=== PATIENT | male | born 2000 | race Caucasian/White ===

== ENCOUNTER 2023-12-09 07:10 | Emergency (ER) | payer OTHER, BC, SELFPAY ==
[2023-12-09 07:11] VITALS: BP 157/81
--- NOTE | 2023-12-09 08:50 | ED.GENMED ---
History of Present Illness
General
Chief Complaint: Skin Surface Trauma
Source: patient
Exam Limitations: none
Time Seen by Provider: 12/09/23 08:06
Nursing documentation reviewed up to this point in time: agreed with
Travel History
Have you had any contact with someone who has COVID-19?: No
Do you have any symptoms of coronavirus? Fever > 100 degrees, chills, cough, shortness of breath, sore throat, loss of taste or smell, muscle aches, or headache?: No
History of Present Illness
History of Present Illness:
23-year-old male with past medical history of asthma presenting to the emergency department today with concerns of a laceration between the index and middle finger in the webspace from opening a can while at work just prior to arrival. Denies any
additional symptoms no numbness or weakness
Review of Systems
Review of Systems
Allergies reviewed?: Yes
All Other Systems: ROS reviewed and negative except as documented in HPI and ROS
Phy Exam
Physical Exam
Physical Exam:
GENERAL: Alert , in no apparent distress
EYE: pupils equal and reactive
NECK: Supple, no significant adenopathy.
ENT: o/p clr, mmm.
CARDIAC: Regular rate and rhythm .
LUNGS: Clear breath sounds bilaterally, no acute respiratory distress, no wheezes/rales/rhonchi
ABDOMEN: Soft, without focal tenderness, no r/g, no cvat
NEUROLOGICAL: Alert and oriented, no focal neuro deficits
SKIN: Laceration between the index and middle finger 3.5 cm in length subcutaneous in depth no tendon involvement no foreign body seen explored warm and dry, skin intact.
MUSCULOSKELETAL: No edema, well perfused.
PSYCH: Normal and appropriate interaction.
Course
Vital Signs
Initial and Last Documented VS:
Initial Vital Signs
Temp Pulse Resp BP Pulse Ox
98.2 F 85 16 157/81 98
12/09/23 07:11 12/09/23 07:11 12/09/23 07:11 12/09/23 07:11 12/09/23 07:11
Last Documented Vital Signs
Temp Pulse Resp BP Pulse Ox
98.2 F 85 16 157/81 98
12/09/23 07:11 12/09/23 07:11 12/09/23 07:11 12/09/23 07:11 12/09/23 07:11
Procedures
Laceration Closure
Left Second Finger:
Status of Wound: clean
Size of Wound in cm: 3.5
Description of Wound Edges: sharp
Preparation: cleaned with saline
Anesthesia: 1% Lidocaine with epi
Revision/Debridement: routine- no revision and irrigate-direct pressure
Wound exploration: explored to base- no FB and no tendon involvement
Type of Closure: single layer closure
Skin Closure Material: 4-0 nylon
Number of sutures: 5
MDM/Problems Addressed
MDM/Problems Addressed:
23-year-old male presenting to the emergency department today with concerns of a laceration to his hand between the second and third digits from a can prior to arrival no foreign body seen explored to its base very clean in appearance he is
otherwise healthy prophylactic antibiotics not indicated at this time was given updated tetanus shot. Otherwise this was cleaned thoroughly closed with 5 total sutures. Stable for outpatient management return precautions given.
*Critical Care Note
Total Time (30-74mins, 75-104mins- exclusive of procedures): Not Applicable
ED Attending Note
-
Portions of this chart may have been created with voice recognition software.� Occasional wrong word or��sound alike� substitutions may have occurred due to the inherent limitations of voice recognition software.
Discharge Plan
Departure
Patient Disposition: Home (Routine Discharge)
Date of Disposition: 12/09/23
Time of Disposition: 08:50
Patient with high blood pressure during this ER visit?: No
Condition: Good
Covid-19: Not Applicable
Discharge Problem:
Hand laceration
Instructions: Laceration Repair With Stitches (DC)
Prescriptions:
No Action
cephalexin 500 MG capsule
500 mg PO TID Qty: 30 0RF
Referrals:
UNKNOWN - PT DOES,NOT KNOW [Family Provider] -
Activity Restrictions/Additional Instructions:
You came to the emergency department today with concerns of a laceration. You are given a tetanus shot and the laceration was closed with 5 sutures. Please keep the area clean covered and return to the emergency department for any worsening
symptoms.
Interventions
Interventions:
*Risk Screen - Suicide Last Done: 12/09/23 07:11
*General Assessment Last Done: 12/09/23 07:11
*Neglect/Abuse Screening Last Done: 12/09/23 07:11
ED-Skin Assessment Last Done: 12/09/23 08:29
[2023-12-09] MEDS: ADACEL 0.5 ML IM (09:11)
== END 2023-12-09 09:27 | disposition home or self-care (01) ==
LOC: EMR 07:10
PROVIDERS: EMERGENCY PHYSICIAN Emergency Medicine
DX: S61.211A Laceration without foreign body of left index finger without damage to nail, initial encounter (principal); W26.8XXA Contact with other sharp object(s), not elsewhere classified, initial encounter; Y99.0 Civilian activity done for income or pay; Z23 Encounter for immunization
CPT/HCPCS: 99284; 90471; 12002; 90715